=== PATIENT | female | born 1995 | race Caucasian/White ===

== ENCOUNTER 2017-02-18 10:32 | Emergency (ER) | payer OTHER ==
[~2017-02-18] VITALS: Ht 157.5 cm; Wt 68.2 kg
[2017-02-18 10:47] VITALS: BP 101/73; PULSE 80; RESP 16; O2SAT 98
--- NOTE | 2017-02-18 11:17 | ED.REPORT ---
HPI-Abd Pain F Under 38 Date of Service February 18, 2017 ED Provider: Alejandro Lundy PAC History of Present Illness: 21yo female with intermittent RLQ abdominal pain x 3 days. Pain radiates to midline and is sharp. No fever, dysuria, hematuria, vag discharge. LMP 4 weeks ago. Uses BC patch, denies . Good PO intake and normal BMs over weekend. Nursing Notes Stated Complaint: LOWER ABDOMINAL PAIN Chief Complaint: Female Abdominal Pain Nursing Notes Reviewed: Yes Allergies: Coded Allergies: No Known Allergies (Unverified Allergy, Unknown, 02/18/17) Scheduled Dicyclomine (Bentyl) 10 Mg Capsule 10 MG PO TID General Time Seen by MD: 11:16 Chief Complaint Abdominal pain Hx Obtained From: Patient Arrived By: Walk-in Sudden in Onset?: Yes Onset Occurred: 3 days ago Symptom Duration: Intermittent Progression since Onset: Waxes and wanes Location: : RLQ Quality: Sharp Radiation: : Abdomen lower Severity: Current: Mild Severity: Maximum: Moderate Associated with: Denies: Chills, Constipation, Diarrhea, Dysuria, Fever, Melena , Urinary tract symptoms, Vaginal bleeding, Vaginal discharge Pertinent Negative: Pt denies other symptoms Recent Healthcare: No recent doctor visit Similar Sx Previous: No Risk Factors Ectopic Risk Stratification Risk factors reviewed CAD Risk Stratification Risk factors N/A TAD Risk Stratification Risk factors reviewed Past Medical History Past Medical History Denies Past Surgical History Denies Smoking History Never Smoker Social History Alcohol Use: Denies alcohol use Drug Use: Denies drug use Ambulatory Status Independent Review of Systems Constitutional: Denies: Chills, Fever Cardiovascular: Denies: Chest pain GI: Denies: Bloody/tarry stool, Constipation, Diarrhea, Melena, Vomiting Female: Denies: Dysuria, Hematuria Physical Exam Initial Vital Signs Vital Signs (First) Date Time Temp Pulse Resp B/P Pulse Ox O2 Delivery O2 Flow Rate FiO2 02/18/17 10:47 36.4 80 16 101/73 98 Room Air Initial VS: Vital signs normal General/Constitutional: Awake, Alert, No acute distress, Well hydrated Respiratory / Chest: Breath sounds NL, Breath sounds = bilat, No respiratory distress Cardiovascular: Heart rate NL, Regular rhythm, Heart sounds NL Abdomen: Soft, No guarding, No rebound, BS normoactive Tenderness/Guarding/Rebound: Positive: Tender RLQ... (Mild) Female Genitourinary: Track Walker present (Juice, RN), External genitalia NL, No bleeding, No discharge, No cervical motion tend, Os closed Pelvic Exam: Positive: Adnexal tenderness R Interpretation & Diagnostics Interpretation & Diagnostics: Urine preg negative Lab Results Interpretation Result Diagram: 02/18/17 1144 02/18/17 1144 Test 02/18/17 11:44 02/18/17 12:09 02/18/17 12:25 White Blood Count 7.5th/mm3 (3.8-10.1) Red Blood Count 4.52mil/mm3 (3.90-5.20) Hemoglobin 13.7g/dL (12.0-15.6) Hematocrit 38.4% (35.0-46.0) Mean Corpuscular Volume 85.0fL (81-100) Mean Corpuscular Hemoglobin 30.3pg (27.0-35.0) Mean Corpuscular Hemoglobin Concent 35.7% (32.0-37.0) Red Cell Distribution Width 11.6% (12.3-15.4) Platelet Count 220bil/L (150-400) Neutrophils (%) (Auto) 70.6% (40-74) Lymphocytes (%) (Auto) 23.6% (14-46) Monocytes (%) (Auto) 5.1% (4-12) Eosinophils (%) (Auto) 0.5% (0-5) Basophils (%) (Auto) 0.1% (0-3) Hold Blue Top Tube Received (Received) Sodium Level 138mEq/L (134-144) Potassium Level 4.0mEq/L (3.5-5.2) Chloride Level 102mEq/L (97-108) Carbon Dioxide Level 23mmol/L (18-29) Blood Urea Nitrogen 11mg/dL (6-20) Creatinine 0.61mg/dL (0.57-1.00) Estimat Glomerular Filtration Rate 174mL/min (>59) Glucose Level 93mg/dL (60-99) Calcium Level 9.3mg/dL (8.5-10.1) Total Bilirubin 0.3mg/dL (0.0-1.2) Aspartate Amino Transf (AST/SGOT) 20U/L (0-50) Alanine Aminotransferase (ALT/SGPT) 13U/L (0-32) Alkaline Phosphatase 55U/L (25-150) Total Protein 7.2g/dL (6.4-8.4) Albumin 4.0g/dL (3.4-5.0) Lipase 38U/L (13-60) Hold [place] Top Tube Received (Received) Urine Color Yellow (YELLOW) Urine Appearance Hazy (CLEAR,HAZY) Urine pH 6.0 (5.0-8.0) Urine Specific [place] 1.015 (1.003-1.035) Urine Protein Negativemg/dL (NEG,TRACE) Urine Glucose (UA) Negativemg/dL (NEGATIVE) Urine Ketones Negativemg/dL (NEGATIVE) Urine Occult Blood Negative (NEGATIVE) Urine Nitrite Negative (NEGATIVE) Urine Bilirubin Negative (NEGATIVE) Urine Urobilinogen Normalmg/dL (NORMAL) Urine Leukocyte Esterase Negative (NEGATIVE) Urine RBC 0-2/hpf (0-2) Urine WBC 0-5/hpf (0-5) Urine Epithelial Cells Occasional/hpf (NONE-MOD) Urine Crystals None seen (NONE SEEN) Urine Bacteria Few/hpf (NONE-FEW) Urine Hyaline Casts None/lpf (NONE) Urine Granular Casts None seen (NONE SEEN) Urine Waxy Casts None seen (NONE SEEN) Urine Red Blood Cell Casts None seen (NONE SEEN) Urine White Blood Cell Casts None seen (NONE SEEN) Urine Mucus None seen (None Seen) Urine Trichomonas None seen (NONE SEEN) Urine Yeast None (NONE SEEN) Urinalysis Comment None Urine Culture Reflexed Not indicated US Focused non-OB Pelvis PROCEDURE: US PELVIC SONOGRAM + TRANSVAGINAL SONOGRAM INDICATIONS: RLQ pain TECHNIQUE: Real-time scanning was performed of the pelvic organs, with image documentation. Additional endovaginal scanning was necessary due to incomplete visualization of the adnexal and endometrial structures by transabdominal scanning. COMPARISON: None. FINDINGS: (orthogonal measurements) Uterus size: 8.85 cm, 4.15 cm, 7.93 cm Endometrium thickness: 1.13 cm Right ovary size: 2.48 cm, 2.85 cm, 1.90 cm Left ovary size: 1.08 cm, 1.97 cm, 2.27 cm Transabdominal scanning: Limited scanning through the kidneys shows no hydronephrosis. No pathologic free abdominal or pelvic fluid. Endovaginal scanning: Uterus: Uterus is normal in size and appearance. Endometrium is within normal physiologic limits. Ovaries: Within normal physiologic limits. IMPRESSION: No source for pelvic pain identified sonographically. Dictated by: Shawn NORTON Interpreted: Amy Berrios MD on 02/18/2017 at 12:58 Transcribed by: LUIS ANGEL on 02/18/2017 at 12:58 Re-Eval/Medical Decision Med Decision/Clinical Course Med Decision/Clinical Course: Pt's exam and ED evaluation unable to definitively ID source of pain. Her abdominal exam remains soft. Case discussed and labs/US reviewed with Dr. Collado who concurs with outpatient symptomatic treatment for now, strict return precautions, and recheck with PCP in 24-48 hours. Re-Evaluation/Progress : Time of Eval: 13:00 )( Re-Eval Abdomen: Soft, No guarding, No rebound, BS normoactive Counseled Regarding: Diagnosis, Lab results, Need for follow-up, When/why to return to ED Discharge & Departure Primary Impression: Abdominal pain Abdominal location: right lower quadrant Qualified Code: R10.31 - Right lower quadrant pain Disposition: Home Patient Instructions: Acute Abdominal Pain (ED) Additional Instructions: Soft diet for 48 hours, take meds as needed for spasmodic pain. Return to EDif anything worsens. Follow up with PCP for recheck in 24-48 hours. Referrals: Burt Barney MD (PCP) 1 Day recheck EDSupervising Provider for APC: Oswaldo Collado DO copies to: Burt Barney MD, Christopher R PAC February 18, 2017 11:17
[2017-02-18 11:49] LABS: BASOPHILS % (AUTO) 0.1 % (0-3); EOSINOPHILS % (AUTO) 0.5 % (0-5); MONOCYTES % (AUTO) 5.1 % (4-12); Mean Corpuscular Hemoglobin 30.3 pg (27.0-35.0); NEUTROPHILS % (AUTO) 70.6 % (40-74); Platelet Count 220 bil/L (150-400)
[2017-02-18 12:30] LABS: APPEARANCE,URINE HAZY (CLEAR,HAZY); COLOR,URINE YELLOW (YELLOW); OCCULT BLOOD,URINE NEGATIVE (NEGATIVE); UROBILINOGEN,URINE NORMAL (NORMAL)
--- NOTE | 2017-02-18 12:59 | DRSVH ---
PROCEDURE: US PELVIC SONOGRAM + TRANSVAGINAL SONOGRAM INDICATIONS: RLQ pain TECHNIQUE: Real-time scanning was performed of the pelvic organs, with image documentation. Additional endovagi nal scanning was necessary due to incomplete visualization of the adnexal and endometrial structures by transabdominal scanning. COMPARISON: [facility] Ultrasound, US, US PELVIC+TRANSVAG, 11/08/2015, 13:16. FINDINGS: (orthogonal measurements) Uterus size: 8.85 cm, 4.15 cm, 7.93 cm Endometrium thickness: 1.13 cm Right ovary size: 2.48 cm, 2.85 cm, 1.90 cm Left ovary size: 1.08 cm, 1.97 cm, 2.27 cm Transabdominal scanning: Limited scanning through the kidneys shows no hydronephrosis. No pathologi c free abdominal or pelvic fluid. Endovaginal scanning: Uterus: Uterus is normal in size and appearance. Endometrium is within normal physiologic limits. Ovaries: Within normal physiologic limits. IMPRESSION: No source for pelvic pain identified sonographically. Dictated by: Shawn NORTON Interpreted: Amy Berrios MD on 02/18/2017 at 12:58 Transcribed by: LUIS ANGEL on 02/18/2017 at 12:58 Approved by: Amy Berrios M.D. on 02/18/2017 at 13:39
[2017-02-18] MEDS ORDERED: DICY10CA56 PO (13:23)
[2017-02-18 13:27] VITALS: BP 105/51; PULSE 80; O2SAT 97
== END 2017-02-18 13:27 | disposition home or self-care (01) ==
LOC: SED 10:32
DX: R10.31 Right lower quadrant pain (principal)